=== PATIENT | male | born 1990 | race American Indian/Alaskan Native ===

== ENCOUNTER 2021-12-27 00:06 | Emergency (ER) | payer SELFPAY ==
[2021-12-27 00:59] VITALS: BP 164/99
== END 2021-12-27 19:35 | disposition home or self-care (01) ==
LOC: ED 00:06
DX: J06.9 Acute upper respiratory infection, unspecified (principal); Z53.21 Procedure and treatment not carried out due to patient leaving prior to being seen by health care provider